=== PATIENT | female | born 1960 | race Caucasian/White ===

== ENCOUNTER → 2024-05-30 | Day surgery (SDC) | payer BC, OTHER ==
[~2024-05-30] MED LIST: ASPIRIN81 MG PO; ESMOLOL HCL 100MG/10ML 10 MG/ML VIAL ONE; ESTRADIOL1 MG PO; GLUCAGON FOR INJ 1 MG VIAL ONE; HYOSCYAMINE SULFATE 0.5 MG/ML INJ ONE; LIDOCAINE HCL 2% LOCAL INJ 5 ML SDV VIAL INJ ONE; METOPROLOL SUCC25 MG PO; METOPROLOL TARTRATE INJ 1 MG/ML VIAL ONE; ONE DAILY COMP1 EACH PO; PRAVASTATIN SOD20 MG PO; PROPOFOL IV EMULSION 10 MG/ML 20 ML VIAL ONE; PROPOFOL IV EMULSION 50 ML IV ONE
[2024-05-30] MEDS: LACTATED RINGER'S 1,000 ML ONE (14:05)
[2024-05-30 15:58] VITALS: TEMP 97
[2024-05-30 16:30] VITALS: BP 129/84; PULSE 76; RESP 18; O2SAT 98
== END | disposition home or self-care (01) ==
LOC: OR 13:33
PROVIDERS: ATTEND Internal Medicine Gastroenterology
DX: Z09 Encounter for follow-up examination after completed treatment for conditions other than malignant neoplasm (principal); K62.1 Rectal polyp; Z86.0100 Personal history of colon polyps, unspecified; K64.8 Other hemorrhoids; I10 Essential (primary) hypertension; Z71.89 Other specified counseling; E78.5 Hyperlipidemia, unspecified; Z01.810 Encounter for preprocedural cardiovascular examination; Z79.899 Other long term (current) drug therapy; Z79.82 Long term (current) use of aspirin; Z68.25 Body mass index [BMI] 25.0-25.9, adult; Z71.3 Dietary counseling and surveillance
CPT/HCPCS: 45380; 93005; J1980; J2003